=== PATIENT | female | born 1950 | race Caucasian/White ===

== ENCOUNTER 2022-01-02 09:26 | Day surgery (SDC) | payer MEDICARE ==
--- NOTE | 2022-01-02 11:50 | US ---
EXAMINATION TYPE: US guided soft tissue drainage DATE OF EXAM: 01/02/2022 HISTORY: Seroma left chest status post mastectomy FINDINGS: Maximal barrier technique was utilized. The skin overlying a suitable path to the fluid wa s localized with ultrasound and the overlying skin prepped and draped. Lidocaine was used for local anesthesia. A skin dandre made with a scalpel. Access was gained under direct ultrasound guidance to the fluid with a 21-gauge needle. Ultrasound was utilized using sterile technique. A 0.018 inch wire was advanced. Access site was dilated and an 8.5-[place] catheter advanced into the seroma. Sanguin ous serous fluid returned. Catheter fixed to the skin. Hemostasis achieved. No immediate complicat ion and the patient remained in stable condition. IMPRESSION: STATUS POST ULTRASOUND GUIDED SEROMA DRAINAGE, THIS PROCEDURE WAS PERFORMED BY THE UNDERS IGNED. Specimen obtained for laboratory analysis.
[2022-01-02 12:16] VITALS: RESP 18; TEMP 98.2
[2022-01-02 12:23] VITALS: BP 104/65; PULSE 74
== END 2022-01-02 11:15 | disposition home or self-care (01) ==
LOC: RADPROMAIN 09:26
PROVIDERS: ATTEND Surgery
DX: L76.34 Postprocedural seroma of skin and subcutaneous tissue following other procedure (principal)
CPT/HCPCS: 10030; 76942; 87070; 87077; 87186; 87205

== ENCOUNTER 2022-01-08 10:27 | Day surgery (SDC) | payer MEDICARE ==
[2022-01-08 11:51] VITALS: BP 124/74; RESP 18
[2022-01-08 11:58] VITALS: TEMP 97.8
== END 2022-01-08 12:14 | disposition home or self-care (01) ==
LOC: RADPROMAIN 10:27
PROVIDERS: ATTEND Surgery
DX: Z43.8 Encounter for attention to other artificial openings (principal)
CPT/HCPCS: 99213